=== PATIENT | male | born 1965 | race Caucasian/White ===

== ENCOUNTER → 2019-03-04 | Outpatient (CLI) | payer OTHER ==
[~2019-03-04] MED LIST: ACETAMINOPHEN325 M1 PO; ARIXTRA IJ; ASPIRIN325 PO; BENADRYL25 MG PO; CEPACOL SORE T1 EAC2 MM; MOM; OXYCODONE HCL 55 MG PO; PEPCID40 MG PO; PERCOCET 7.5-31 EACH PO; STOOL SOFTENER1 EAC2 PO
== END ==
LOC: M.RAD 17:11
DX: M43.8X4 Other specified deforming dorsopathies, thoracic region (principal); I70.0 Atherosclerosis of aorta

== ENCOUNTER → 2021-02-22 | Outpatient (CLI) | payer OTHER | LOC: M.ULTRA 07-27 10:30 | PROVIDERS: ATTEND Nurse Practitioner Family | DX: I71.4 Abdominal aortic aneurysm, without rupture (principal); R33.9 Retention of urine, unspecified; Q27.1 Congenital renal artery stenosis ==

== ENCOUNTER → 2021-02-26 | Outpatient (CLI) | payer OTHER | LOC: M.ULTRA 14:00 | PROVIDERS: ATTEND Nurse Practitioner Family | DX: R33.9 Retention of urine, unspecified (principal) ==